=== PATIENT | male | born 1985 | race Caucasian/White ===

== ENCOUNTER 2019-03-10 07:37 | Emergency (ER) | payer BC ==
[~2019-03-10] VITALS: Ht 177.8 cm; Wt 82.1 kg
[2019-03-10 07:53] VITALS: Ht 177.8 cm; Wt 82.1 kg
[2019-03-10 11:06] VITALS: BP 139/89
== END 2019-03-10 11:06 | disposition home or self-care (01) ==
LOC: ED 07:37
DX: M43.6 Torticollis (principal)